=== PATIENT | male | born 1980 | race Caucasian/White ===

== ENCOUNTER 2018-01-02 09:45 | Inpatient (IN) ==
[2018-01-02] MEDS ORDERED: Pantoprazole Inj 40 MG Vial IV.PUSH ONE (09:56)
[2018-01-02] MEDS ORDERED: HYDROmorphone PF Inj 1 MG/ML Ampul IV.PUSH ONE (09:56)
[2018-01-02] MEDS ORDERED: Famotidine PF Inj 20 MG/2 ML Vial IV.PUSH ONE (09:56)
--- NOTE | 2018-01-02 10:34 | XR ---
EXAM DATE: 01/02/2018 10:31 AM EDT AGE/SEX: 37 years / Male INDICATIONS: Free air CLINICAL DATA: This is the patient's initial encounter. Patient reports that signs and symptoms have been present for 2 days and indicates a pain score of 9/10. MEDICAL/SURGICAL HISTORY: Crohn's disease. None. COMPARISON: [facility] [place], 01/02/2018. . FINDINGS: A single AP view of the chest demonstrates the lungs to be symmetrically aerated without evidence of mass, infiltrate or effusion. The cardiomediastinal contours are unremarkable. Osseous structures a re intact. No evidence of free air underneath the diaphragms. CONCLUSION: 1. No focal or acute intrathoracic disease. 2. No evidence of free air. Electronically signed by: Evin Dumont MD 01/02/2018 10:33 AM EDT
--- NOTE | 2018-01-02 10:36 | XR ---
EXAM DATE: 01/02/2018 10:33 AM EDT AGE/SEX: 37 years / Male INDICATIONS: Evaluate for perforation CLINICAL DATA: This is the patient's initial encounter. Patient reports that signs and symptoms have been present for 2 days and indicates a pain score of 9/10. MEDICAL/SURGICAL HISTORY: Crohn's disease. None. COMPARISON: No prior exams available for comparison. FINDINGS: Single upright view of the abdomen demonstrates no free air. There is a paucity of bowel gas. No orga nomegaly or concerning calcifications are seen. Visualized lung bases are clear. Bones demonstrate no abnormality. EKG lines overlie the patient. CONCLUSION: No acute abnormality is identified. There is no free air. Electronically signed by: Felix Duarte MD 01/02/2018 10:35 AM EDT
[2018-01-02] MEDS: Sod Chloride 0.9% Inj 1,000 ML IV.CONT SCH ×4 (10:48→22:22)
--- NOTE | 2018-01-02 10:51 | ED ---
HPI General Chief complaint: GI Bleed Stated complaint: Nausea / vomitting Time Seen by Provider: 01/02/18 09:56 History of Present Illness HPI Narrative: This is a 37-year-old male with a history of Crohn's disease, presents here today with complaints of severe nausea vomiting with coffee- ground emesis. Patient states that it started over the last 24-48 hours. He reports severe crampy abdominal pain. He states it is worse in his epigastrium. Patient states he has a history of esophageal varices. He states he has had them banded previous. Patient denies any fevers, chills. There is no melena. No other complaints at the time of my examination. Related Data Home Medications Medication Instructions Recorded Confirmed No Known Home Medications 01/02/18 01/02/18 Allergies Allergy/AdvReac Type Severity Reaction Status Date / Time No Known Allergies Allergy Unverified 01/02/18 09:54 Review of Systems ROS: all other systems reviewed are negative Constitutional Denies chills and Denies fever(s) Eyes Reports system reviewed and no additional complaints, except as docu ENT Reports system reviewed and no additional complaints, except as docu Cardiovascular Denies chest pain and Denies dyspnea Respiratory Denies chest congestion, Denies cough and Denies dyspnea Gastrointestinal Denies melena, Reports nausea, Reports vomiting and Reports other (Coffee- ground emesis.) Genitourinary Reports system reviewed and no additional complaints, except as docu Musculoskeletal Denies back pain, Denies numbness and Denies tingling Integumentary/Breasts Denies lesions and Denies rash Neurologic Denies headache(s), Denies numbness, Denies paresthesias and Reports weakness ( Generalized) Hematologic/Lymphatic Denies easy bleeding and Denies easy bruising PMFSH Medical History Medical History Crohns disease (Acute) Surgical History Surgical History No history of previous surgery (Acute) Family History Family History Other Osteoarthritis Social History Social History Substance History: Active Abuse Second Hand Smoke Exposure: Yes Smoking Status: Light tobacco smoker Tobacco Type: Cigarettes How Often Do You Have a Drink Containing Alcohol: Never Recent Travel in [facility] within the Last 8 Weeks: No Recent Out of Country Travel within the Last 8 Weeks: No Immunization History Tetanus Immunization: >5 Years Hx Influenza Vaccine This Season: No Exam Narrative Exam Narrative: GENERAL: Well-nourished, well-developed patient in obvious discomfort complain of abdominal pain.. SKIN: Focused skin assessment warm/dry. HEAD: Normocephalic/atraumatic. EYES: No scleral icterus. No injection or drainage. NECK: Supple, trachea midline. No JVD or lymphadenopathy. CARDIOVASCULAR: Regular rate and rhythm without murmurs, gallops, or rubs. RESPIRATORY: Breath sounds equal bilaterally. No accessory muscle use. GASTROINTESTINAL: Abdomen soft, nondistended. Patient had diffuse pain in his upper and lower quadrants. No rebound or guarding. MUSCULOSKELETAL: No cyanosis, or edema. BACK: Nontender without obvious deformity. No CVA tenderness. NEUROLOGICAL: Awake and alert. Cranial nerves II through XII intact. Motor grossly within normal limits. Five out of 5 muscle strength in all muscle groups. Normal speech. Course Initial Documented Vital Signs Temperature 97.9 F 01/02/18 09:51 Pulse Rate 84 01/02/18 09:51 Respiratory Rate 24 01/02/18 09:51 Blood Pressure 133/87 01/02/18 09:51 Pulse Oximetry 98 01/02/18 09:51 Last Documented Vital Signs Temperature 98.4 F 01/04/18 16:00 Pulse Rate 90 01/04/18 16:00 Respiratory Rate 16 01/04/18 16:00 Blood Pressure 167/79 H 01/04/18 16:00 Pulse Oximetry 100 01/04/18 16:00 Medical Decision Making MDM Narrative Medical decision making narrative: 37-year-old male with a history of Crohn's disease, presents today with complaints of abdominal pain. Patient has intractable pain. He is received 2 doses of IV and antiemetics. The patient also has blood tinged vomit. He will be admitted for an upper endoscopy secondary to his history of Crohn's and history of varices. An NG tube was held at this time given his history of varices. Case was discussed with the admitting team her agreeable for admission. Medical Screen Exam Complete: Yes Emergency Medical Condition: Yes Differential Diagnosis Differential Diagnosis: Crohn's exacerbation versus Shayna-Lopez tear versus Lab Data Result diagrams: 01/04/18 08:01 01/04/18 08:01 Lab Results 01/02/18 01/02/18 01/02/18 Range/Units 10:15 10:15 10:15 WBC 14.4 H (4.0-11.0) th/mm3 RBC 4.32 L (4.50-5.90) mil/mm3 Hgb 16.0 (13.0-17.0) gm/dL Hct 46.8 (39.0-51.0) % MCV 108.4 H (80.0-100.0) fL MCH 37.1 H (27.0-34.0) pg MCHC 34.2 (32.0-36.0) % RDW 19.9 H (11.6-17.2) % Plt Count 227 (150-450) th/mm3 MPV 10.2 (7.0-11.0) fL Neut % (Auto) 86.7 H (16.0-70.0) % Lymph % (Auto) 7.0 L (9.0-44.0) % Robertson % (Auto) 6.0 (0.0-8.0) % Eos % (Auto) 0.1 (0.0-4.0) % Baso % (Auto) 0.2 (0.0-2.0) % Neut # (Auto) 12.5 H (1.8-7.7) th/mm3 Lymph # (Auto) 1.0 (1.0-4.8) th/mm3 Robertson # (Auto) 0.9 (0.0-0.9) th/mm3 Eos # (Auto) 0.0 (0.0-0.4) th/mm3 Baso # (Auto) 0.0 (0.0-0.2) th/mm3 WBC Differential . Differential Comment Auto diff final PT 10.8 (9.8-11.6) sec INR 1.1 Ratio APTT 22.3 L (24.3-30.1) sec Sodium 142 (136-145) meq/L Potassium 3.2 L (3.5-5.1) meq/L Chloride 100 (98-107) meq/L Carbon Dioxide 23.3 (21.0-32.0) meq/L Anion Gap 19 H (5-15) meq/L BUN 8 (7-18) mg/dL Creatinine 1.00 (0.60-1.30) mg/dL Estimated GFR 84 L (>89) mL/min Random Glucose 125 H (74-106) mg/dL Calcium 7.8 L (8.5-10.1) mg/dL Total Bilirubin 1.2 H (0.2-1.0) mg/dL AST 75 H (15-37) U/L ALT 73 (12-78) U/L Alkaline Phosphatase 93 (45-117) U/L Troponin I Less than 0.02 L (0.02-0.05) ng/mL Total Protein 6.6 (6.4-8.2) g/dL Albumin 3.3 L (3.4-5.0) g/dL Urine Opiates Screen (Neg) Ur Barbiturates Screen (Neg) Ur Amphetamines Screen (Neg) U Benzodiazepines Scrn (Neg) Urine Cocaine Screen (Neg) U Cannabinoids Screen (Neg) Blood Type Antibody Screen MTS Gel Crossmatch Bld Prod Order Comment 01/02/18 01/02/18 01/03/18 Range/Units 10:15 20:29 06:42 WBC 12.6 H (4.0-11.0) th/mm3 RBC 3.78 L (4.50-5.90) mil/mm3 Hgb 14.6 14.3 (13.0-17.0) gm/dL Hct 41.6 41.7 (39.0-51.0) % MCV 110.2 H (80.0-100.0) fL MCH 37.9 H (27.0-34.0) pg MCHC 34.4 (32.0-36.0) % RDW 19.4 H (11.6-17.2) % Plt Count 156 D (150-450) th/mm3 MPV 10.2 (7.0-11.0) fL Neut % (Auto) 89.7 H (16.0-70.0) % Lymph % (Auto) 5.5 L (9.0-44.0) % Robertson % (Auto) 4.7 (0.0-8.0) % Eos % (Auto) 0.0 (0.0-4.0) % Baso % (Auto) 0.1 (0.0-2.0) % Neut # (Auto) 11.3 H (1.8-7.7) th/mm3 Lymph # (Auto) 0.7 L (1.0-4.8) th/mm3 Robertson # (Auto) 0.6 (0.0-0.9) th/mm3 Eos # (Auto) 0.0 (0.0-0.4) th/mm3 Baso # (Auto) 0.0 (0.0-0.2) th/mm3 WBC Differential . Differential Comment Auto diff final PT (9.8-11.6) sec INR Ratio APTT (24.3-30.1) sec Sodium (136-145) meq/L Potassium (3.5-5.1) meq/L Chloride (98-107) meq/L Carbon Dioxide (21.0-32.0) meq/L Anion Gap (5-15) meq/L BUN (7-18) mg/dL Creatinine (0.60-1.30) mg/dL Estimated GFR (>89) mL/min Random Glucose (74-106) mg/dL Calcium (8.5-10.1) mg/dL Total Bilirubin (0.2-1.0) mg/dL AST (15-37) U/L ALT (12-78) U/L Alkaline Phosphatase (45-117) U/L Troponin I (0.02-0.05) ng/mL Total Protein (6.4-8.2) g/dL Albumin (3.4-5.0) g/dL Urine Opiates Screen (Neg) Ur Barbiturates Screen (Neg) Ur Amphetamines Screen (Neg) U Benzodiazepines Scrn (Neg) Urine Cocaine Screen (Neg) U Cannabinoids Screen (Neg) Blood Type A Positive Antibody Screen Negative MTS Gel Crossmatch See Detail Bld Prod Order Comment Not Reportable 01/03/18 01/04/18 01/04/18 Range/Units 06:46 08:01 08:01 WBC 10.6 (4.0-11.0) th/mm3 RBC 3.74 L (4.50-5.90) mil/mm3 Hgb 14.1 (13.0-17.0) gm/dL Hct 41.1 (39.0-51.0) % MCV 109.9 H (80.0-100.0) fL MCH 37.7 H (27.0-34.0) pg MCHC 34.3 (32.0-36.0) % RDW 18.9 H (11.6-17.2) % Plt Count 135 L (150-450) th/mm3 MPV 10.7 (7.0-11.0) fL Neut % (Auto) (16.0-70.0) % Lymph % (Auto) (9.0-44.0) % Robertson % (Auto) (0.0-8.0) % Eos % (Auto) (0.0-4.0) % Baso % (Auto) (0.0-2.0) % Neut # (Auto) (1.8-7.7) th/mm3 Lymph # (Auto) (1.0-4.8) th/mm3 Robertson # (Auto) (0.0-0.9) th/mm3 Eos # (Auto) (0.0-0.4) th/mm3 Baso # (Auto) (0.0-0.2) th/mm3 WBC Differential Differential Comment PT (9.8-11.6) sec INR Ratio APTT (24.3-30.1) sec Sodium 142 141 (136-145) meq/L Potassium 3.4 L 3.7 (3.5-5.1) meq/L Chloride 105 108 H (98-107) meq/L Carbon Dioxide 25.2 25.7 (21.0-32.0) meq/L Anion Gap 12 7 (5-15) meq/L BUN 6 L 6 L (7-18) mg/dL Creatinine 0.50 L 0.55 L (0.60-1.30) mg/dL Estimated GFR Greater than 89 Greater than 89 (>89) mL/min Random Glucose 104 147 H (74-106) mg/dL Calcium 7.8 L 7.6 L (8.5-10.1) mg/dL Total Bilirubin 0.9 0.6 (0.2-1.0) mg/dL AST 42 H 66 H (15-37) U/L ALT 48 58 (12-78) U/L Alkaline Phosphatase 76 68 (45-117) U/L Troponin I (0.02-0.05) ng/mL Total Protein 5.5 L D 5.6 L (6.4-8.2) g/dL Albumin 2.7 L D 2.7 L (3.4-5.0) g/dL Urine Opiates Screen (Neg) Ur Barbiturates Screen (Neg) Ur Amphetamines Screen (Neg) U Benzodiazepines Scrn (Neg) Urine Cocaine Screen (Neg) U Cannabinoids Screen (Neg) Blood Type Antibody Screen MTS Gel Crossmatch Bld Prod Order Comment 01/04/18 Range/Units 17:05 WBC (4.0-11.0) th/mm3 RBC (4.50-5.90) mil/mm3 Hgb (13.0-17.0) gm/dL Hct (39.0-51.0) % MCV (80.0-100.0) fL MCH (27.0-34.0) pg MCHC (32.0-36.0) % RDW (11.6-17.2) % Plt Count (150-450) th/mm3 MPV (7.0-11.0) fL Neut % (Auto) (16.0-70.0) % Lymph % (Auto) (9.0-44.0) % Robertson % (Auto) (0.0-8.0) % Eos % (Auto) (0.0-4.0) % Baso % (Auto) (0.0-2.0) % Neut # (Auto) (1.8-7.7) th/mm3 Lymph # (Auto) (1.0-4.8) th/mm3 Robertson # (Auto) (0.0-0.9) th/mm3 Eos # (Auto) (0.0-0.4) th/mm3 Baso # (Auto) (0.0-0.2) th/mm3 WBC Differential Differential Comment PT (9.8-11.6) sec INR Ratio APTT (24.3-30.1) sec Sodium (136-145) meq/L Potassium (3.5-5.1) meq/L Chloride (98-107) meq/L Carbon Dioxide (21.0-32.0) meq/L Anion Gap (5-15) meq/L BUN (7-18) mg/dL Creatinine (0.60-1.30) mg/dL Estimated GFR (>89) mL/min Random Glucose (74-106) mg/dL Calcium (8.5-10.1) mg/dL Total Bilirubin (0.2-1.0) mg/dL AST (15-37) U/L ALT (12-78) U/L Alkaline Phosphatase (45-117) U/L Troponin I (0.02-0.05) ng/mL Total Protein (6.4-8.2) g/dL Albumin (3.4-5.0) g/dL Urine Opiates Screen Neg (Neg) Ur Barbiturates Screen Neg (Neg) Ur Amphetamines Screen Neg (Neg) U Benzodiazepines Scrn Neg (Neg) Urine Cocaine Screen Neg (Neg) U Cannabinoids Screen Pos H (Neg) Blood Type Antibody Screen MTS Gel Crossmatch Bld Prod Order Comment Imaging Data Radiologist's impression: Abdomen X-Ray 01/02/18 09:56 CONCLUSION: No acute abnormality is identified. There is no free air. Chest X-Ray 01/02/18 09:56 CONCLUSION: 1. No focal or acute intrathoracic disease. 2. No evidence of free air. Abdomen/Pelvis CT 01/03/18 00:00 CONCLUSION: Fatty liver. Gallbladder Ultrasound 01/04/18 00:00 CONCLUSION: 1. No acute abnormality is identified to explain the clinical symptoms. 2. Hepatic steatosis. Discharge Plan Discharge Disposition Patient Disposition: Left Against Medical Advice Discharge Order Discharge Orders: AMA Discharge (Routine); Ordered 01/04/18 Ordered By: Emigdio Blair Discharge Details Diagnosis: Abdominal pain, Crohns disease, Hyperemesis Physicians Team ED Provider: Luis Rand Primary Care Provider: Primary Care Joleen Galeana Attending Provider: Emigdio Blair Other Providers: Bryon Calle Discharge Interventions Interventions: ED Discharge Assessment Last Done: 01/02/18 17:32 Vital Signs Last Done: 01/02/18 12:16 Status ED Status: Left Department Discharge Information Discharge Date/Time: 01/02/18 17:42 Discharge Location: [facility]
[2018-01-02 11:01] LABS: Baso % (Auto) 0.2 % (0.0-2.0); Eos % (Auto) 0.1 % (0.0-4.0); Hematocrit 46.8 % (39.0-51.0); Mean Corpuscular HGB Conc 34.2 % (32.0-36.0); Mean Corpuscular Hemoglobin 37.1 pg (27.0-34.0); Mean Corpuscular Volume 108.4 fL (80.0-100.0); Mean Platelet Volume 10.2 fL (7.0-11.0); Mono # (Auto) 0.9 th/mm3 (0.0-0.9); Neut # (Auto) 12.5 th/mm3 (1.8-7.7); Neut % (Auto) 86.7 % (16.0-70.0); Platelet Count 227 th/mm3 (150-450); Red Blood Count 4.32 mil/mm3 (4.50-5.90); Red Cell Distribution Width 19.9 % (11.6-17.2); White Blood Count 14.4 th/mm3 (4.0-11.0)
[2018-01-02 11:21] LABS: Activated Partial Thrombo Time 22.3 sec (24.3-30.1); INR 1.1 Ratio; Prothrombin Time 10.8 sec (9.8-11.6)
[2018-01-02 11:23] LABS: Alanine Aminotransferase 73 U/L (12-78); Albumin 3.3 g/dL (3.4-5.0); Anion Gap 19 meq/L (5-15); Aspartate Aminotransferase 75 U/L (15-37); Blood Urea Nitrogen 8 mg/dL (7-18); Calcium 7.8 mg/dL (8.5-10.1); Carbon Dioxide 23.3 meq/L (21.0-32.0); Chloride 100 meq/L (98-107); Glomerular Filtration Rate 84 mL/min (>89); Glucose,Random 125 mg/dL (74-106); Potassium 3.2 meq/L (3.5-5.1); Sodium 142 meq/L (136-145)
[2018-01-02 11:35] LABS: Alkaline Phosphatase 93 U/L (45-117); Total Protein 6.6 g/dL (6.4-8.2)
[2018-01-02] MEDS ORDERED: Morphine Inj 4 MG, Morphine Inj 2 MG IV.PUSH ONE ×2 (11:54)
--- NOTE | 2018-01-02 12:35 | P.HPIM ---
History of Present Illness Primary Care Physician: No Primary Care Physician History of Present Illness: Mr. Rodriguez is a 37-year-old male. He came into the hospital secondary to hematemesis with abdominal pain. This patient has a past history of Crohn's disease and esophageal varices in the past. She also has a history of episodic vomiting episodes in the past. He says this can last 1-2 days. His vomiting started yesterday. She says vomiting started first and subsequently bleeding started. He will typically have esophageal bleeding which collects in the stomach and he reports vomiting bright red blood and sometimes dark black blood clots. Hemoglobin is stable at the time and is analyzed in the ER. However, patient at risk for further bleeding and anemia. No other complaints at this time. To him this feels like 1 of his Crohn's exacerbations and does not feel like food poisoning or virus. No sick contacts. - Diagnosis (1) Hematemesis (2) Crohns disease (3) Abdominal pain (4) Hyperemesis Review of Systems Constitutional: No fevers, no chills no night sweats, no fatigue, no weakness Eyes: No eye pain, no blurry vision, no loss of vision ENT: No sore throat, no ear pain, no rhinorrhea Cardiovascular: No chest pain, no tachycardia, no palpitations, no shortness of breath, no syncope Respiratory: No wheezing, no cough, no shortness of breath Gastrointestinal: Positive abdominal pain, vomiting, hematemesis, no black tarry stools, no bright red blood per rectum, no diarrhea Musculoskeletal: No joint pain, no muscle cramps, no stiffness Integumentary: No rash, no ulcers, no drainage Neurologic: No sensory loss, no loss of motor function, no dizziness Psychiatric: No behavioral changes, no hallucinations, no suicidal ideations [facility] - History History Provided By: Patient - Medical History Medical History: Medical History (Last Updated 01/02/18 @ 09:53 by Linda Osborn) Crohns disease - Surgical History Surgical History: Surgical History (Last Updated 01/02/18 @ 09:53 by Linda Osborn) No history of previous surgery - Family History Family History: Family History (Last Updated 01/02/18 @ 12:32 by Anastacio Ramachandran MD) Other Osteoarthritis - Tobacco History Second Hand Smoke Exposure: No Tobacco Use In Past 30 Days: No Smoking Status: Current every day smoker Tobacco Type: Cigarettes - Alcohol History How Often Do You Have a Drink Containing Alcohol: Never - Substance Use History Substance History: No History of Abuse - Travel History Recent Travel in the [place] Within the Last 8 Weeks: No Recent Travel Out of the Country Within the Last 8 Weeks: No - Immunization History Tetanus Immunization: >5 Years Hx Influenza Vaccine This Season: No Medications and Allergies Active Medications: Active Medications Hydromorphone HCl (Dilaudid Pf Inj) 1 mg IV.PUSH Q4H PRN PRN Reason: Pain 7 to 10 Hydromorphone HCl (Dilaudid Pf Inj) 0.5 mg IV.PUSH Q4H PRN PRN Reason: Pain 3 to 6 Sodium Chloride (Ns Inj) 1,000 mls @ 125 mls/hr IV.CONT .Q8H HALI Last Admin: 01/02/18 10:48 Dose: 125 mls/hr Sodium Chloride (Ns Inj) 1,000 mls @ 100 mls/hr IV.CONT .Q10H HALI Ondansetron HCl (Zofran Inj) 4 mg IV.PUSH Q6H PRN PRN Reason: NAUSEA OR VOMITING Sodium Chloride (Ns Flush) 2 ml IV.FLUSH PRN PRN PRN Reason: FLUSH AFTER USING IV ACCESS Last Admin: 01/02/18 10:48 Dose: 2 ml Allergies Allergy/AdvReac Type Severity Reaction Status Date / Time No Known Allergies Allergy Unverified 01/02/18 09:54 Home Medications Medication Instructions Recorded Confirmed Type No Known Home Medications 01/02/18 01/02/18 History Exam Vital signs: Vital Signs 01/02/18 09:51 01/02/18 10:44 01/02/18 12:16 Temperature 97.9 F Pulse Rate 84 94 H 107 H Respiratory Rate 24 22 20 Blood Pressure 133/87 126/83 139/82 Pulse Oximetry 98 96 97 Intake & Output 01/01/18 01/02/18 01/02/18 18:59 06:59 18:59 Weight 58.967 kg Narrative: GENERAL: NAD, A&Ox3 HEAD: Normocephalic. NECK: Supple, trachea midline. No lymphadenopathy. EYES: No scleral icterus. No injection or drainage. CARDIOVASCULAR: Regular rate and rhythm without murmurs, gallops, or rubs. RESPIRATORY: Breath sounds equal bilaterally. No accessory muscle use. GASTROINTESTINAL: Abdomen soft, tender abdomen, mildly distended. Hypoactive bowel sounds. Mild guarding. MUSCULOSKELETAL: No cyanosis, or edema. SKIN: Warm and dry. NEURO: No focal neurological deficits. Results - Labs CBC & Chem 7: 01/02/18 10:15 01/02/18 10:15 Labs: Short CBC 01/02/18 Range/Units 10:15 WBC 14.4 H (4.0-11.0) th/mm3 Hgb 16.0 (13.0-17.0) gm/dL Hct 46.8 (39.0-51.0) % Plt Count 227 (150-450) th/mm3 BMP 01/02/18 10:15 Sodium 142 Potassium 3.2 L Chloride 100 Carbon Dioxide 23.3 BUN 8 Creatinine 1.00 Calcium 7.8 L Cardiac Enzymes 01/02/18 Range/Units 10:15 Troponin I Less than 0.02 L (0.02-0.05) ng/mL Liver Function 01/02/18 Range/Units 10:15 Total Bilirubin 1.2 H (0.2-1.0) mg/dL AST 75 H (15-37) U/L ALT 73 (12-78) U/L Alkaline Phosphatase 93 (45-117) U/L Albumin 3.3 L (3.4-5.0) g/dL - Imaging Impressions Abdomen X-Ray 01/02/18 09:56 CONCLUSION: No acute abnormality is identified. There is no free air. Chest X-Ray 01/02/18 09:56 CONCLUSION: 1. No focal or acute intrathoracic disease. 2. No evidence of free air. Caprini VTE Risk Assessment Caprini VTE Risk Assessment: No/Low Risk (score <= 1) Caprini Risk Assessment Model: Point Value = 1 Point Value = 2 Point Value = 3 Point Value = 5 Age 41-60 Minor surgery BMI > 25 kg/m2 Swollen legs Varicose veins or History of unexplained or recurrent spontaneous Oral contraceptives or hormone replacement Sepsis (< 1 month) Serious lung disease, including pneumonia (< 1 month) Abnormal pulmonary function Acute myocardial infarction Congestive heart failure (< 1 month) History of inflammatory bowel disease Medical patient at bed rest Age 61-74 Arthroscopic surgery Major open surgery (> 45 min) Laparoscopic surgery (> 45 min) Malignancy Confined to bed (> 72 hours) Immobilizing plaster cast Central venous access Age >= 75 History of VTE Family history of VTE Factor V Leiden Prothrombin [id number] Lupus anticoagulant Anticardiolipin antibodies Elevated serum homocysteine Heparin-induced thrombocytopenia Other congenital or acquired thrombophilia Stroke (< 1 month) Elective arthroplasty Hip, pelvis, or leg fracture Acute spinal cord injury (< 1 month) Prophylaxis Regimen: Total Risk Factor Score Risk Level Prophylaxis Regimen 0-1 Low Early ambulation 2 Moderate Order ONE of the following: *Sequential Compression Device (SCD) *Heparin 5000 units SQ BID 3-4 Higher Order ONE of the following medications: *Heparin 5000 units SQ TID *Enoxaparin/Lovenox 40 mg SQ daily (WT < 150 kg, CrCl > 30 mL/min) *Enoxaparin/Lovenox 30 mg SQ daily (WT < 150 kg, CrCl > 10-29 mL/min) *Enoxaparin/Lovenox 30 mg SQ BID (WT < 150 kg, CrCl > 30 mL/min) AND/OR *Sequential Compression Device (SCD) 5 or more Highest Order ONE of the following medications: *Heparin 5000 units SQ TID (Preferred with Epidurals) *Enoxaparin/Lovenox 40 mg SQ daily (WT < 150 kg, CrCl > 30 mL/min) *Enoxaparin/Lovenox 30 mg SQ daily (WT < 150 kg, CrCl > 10-29 mL/min) *Enoxaparin/Lovenox 30 mg SQ BID (WT < 150 kg, CrCl > 30 mL/min) AND *Sequential Compression Device (SCD) Assessment and Plan - Assessment (1) Hematemesis Code(s): K92.0 - Hematemesis Status: Acute (2) Crohns disease Code(s): K50.90 - Crohn's disease, unspecified, without complications Status: Acute (3) Abdominal pain Code(s): R10.9 - Unspecified abdominal pain Status: Acute (4) Hyperemesis Code(s): R11.10 - Vomiting, unspecified Status: Acute - Plan 37-year-old male admitted secondary to hematemesis with abdominal pain. Hematemesis Hyperemesis Acute abdominal pain History of Crohn's disease History of esophageal varices Patient is at risk for dehydration Patient is at risk for acute blood loss anemia Continue IV pain treatments for pain control Continue IV antiemetics for nausea and vomiting control GI consulted Monitor H&H closely General anxiety disorder Ativan as needed IV DVT prophylaxis SCDs
[2018-01-02] MEDS ORDERED: HYDROmorphone PF Inj 2 MG/ML Vial IV.PUSH PRN (13:00)
[2018-01-02] MEDS ORDERED: MethylPREDNISolone Sod Succinate Inj 40 MG/ML Vial IV.PUSH ONE (13:03)
[2018-01-02] MEDS ORDERED: PEG 3350/E-Lyte Soln 4000 ML Bottle PO ONE (19:21)
--- NOTE | 2018-01-02 20:22 | MB ---
cc: Uzair Allred MD DATE: 01/02/2018 REASON FOR REFERRAL: Nausea, vomiting: Abdominal pain, diarrhea. Thank you for the consultation. HISTORY OF PRESENT ILLNESS: A 37-year-old male who is known to have Crohn disease. He was diagnosed a few years ago. Apparently, the patient was not taking any medication because of lack of insurance. Last time he saw a aboriginal education worker coordinator was last year when he was admitted to [facility] and supposedly he had an upper endoscopy and colonoscopy. He was given prednisone. He was supposed to follow up with Dr. Cantu, his aboriginal education worker coordinator, but he did not because of the insurance issue. The patient stated that he has been vomiting significantly with abdominal pain in the last few days, worse in the last 2 days and then he started having some trace of blood. The patient stated that he has diarrhea every day for the last few years and he has significant abdominal pain, some weight loss and he denies rectal bleeding, but he feels that this is one of his flare-ups as far as Crohn disease. REVIEW OF SYSTEMS: All 12 points negative except for HPI. PAST MEDICAL HISTORY: Crohn disease and questionable history of esophageal varices. PAST SURGICAL HISTORY: He had an upper endoscopy and a colonoscopy, according to him. He has had multiple colonoscopies. FAMILY HISTORY: Osteoarthritis. SOCIAL HISTORY: Negative for tobacco and alcohol. No drugs. MEDICATIONS: Reviewed in the chart. ALLERGIES: NO KNOWN DRUG ALLERGIES. PHYSICAL EXAMINATION: GENERAL: Alert, oriented, in no acute distress. HEENT: Pupils are round and reactive to light. NECK: Supple. CHEST: Clear to auscultation and percussion. CARDIAC: Regular rate and rhythm. ABDOMEN: Soft. Mild diffuse tenderness, mild distention. Positive bowel sounds but reduced. No hepatosplenomegaly. EXTREMITIES: No edema, clubbing or cyanosis. No jaundice. SKIN: Clear. NEUROLOGIC: No focal abnormality. PSYCHOLOGIC: Appropriate. LABORATORY DATA: White count 14.4, hemoglobin 16, platelets 227. INR 1.1. AST 75, ALT 73, total bilirubin 1.1, albumin 3.3, creatinine 1.0. No acute abnormalities were identified on KUB. ASSESSMENT AND PLAN: A 37-year-old male with nausea, vomiting, hematemesis, abdominal pain, severe diarrhea. Most likely this is Crohn disease. Apparently, the patient has multiple workups with colonoscopies, capsule endoscopies. He is noncompliant with medication because of insurance issue. Last procedure was done about a year and a half ago. I recommend doing upper endoscopy and colonoscopy. We will plan on doing that tomorrow and further plan depends on the findings. Meanwhile, we will continue supportive care with antiemetics and make sure that the patient is not actively bleeding. Further plan for Crohn diseased depends on the findings. Dr. Calle will perform the procedure tomorrow. Uzair Allred MD AH/ct , 07:20 PM , 07:35 PM
[2018-01-02 21:06] LABS: Hematocrit 41.6 % (39.0-51.0); Hemoglobin 14.6 gm/dL (13.0-17.0)
[2018-01-02] MEDS: MethylPREDNISolone Sod Succinate Inj 40 MG/ML Vial IV.PUSH SCH (21:42)
[2018-01-03] MEDS: Sod Chloride 0.9% Inj 1,000 ML IV.CONT SCH ×6 (02:21→21:21)
[2018-01-03] MEDS: MethylPREDNISolone Sod Succinate Inj 40 MG/ML Vial IV.PUSH SCH ×3 (05:35→22:39)
[2018-01-03] MEDS ORDERED: Esmolol Bolus Inj 100 MG/10 ML Vial IV.PUSH ONE (08:40)
[2018-01-03] MEDS ORDERED: Lidocaine PF 1% Inj 5 ML Syringe INFILTRATN ONE (08:40)
[2018-01-03 09:00] LABS: Baso % (Auto) 0.1 % (0.0-2.0); Hematocrit 41.7 % (39.0-51.0); Hemoglobin 14.3 gm/dL (13.0-17.0); Lymph # (Auto) 0.7 th/mm3 (1.0-4.8); Lymph % (Auto) 5.5 % (9.0-44.0); Mean Corpuscular HGB Conc 34.4 % (32.0-36.0); Mean Corpuscular Hemoglobin 37.9 pg (27.0-34.0); Mean Corpuscular Volume 110.2 fL (80.0-100.0); Mean Platelet Volume 10.2 fL (7.0-11.0); Mono # (Auto) 0.6 th/mm3 (0.0-0.9); Mono % (Auto) 4.7 % (0.0-8.0); Neut # (Auto) 11.3 th/mm3 (1.8-7.7); Neut % (Auto) 89.7 % (16.0-70.0); Platelet Count 156 th/mm3 (150-450); Red Blood Count 3.78 mil/mm3 (4.50-5.90); Red Cell Distribution Width 19.4 % (11.6-17.2); White Blood Count 12.6 th/mm3 (4.0-11.0)
[2018-01-03] MEDS ORDERED: Chlorhexidine Gluconate 2% 1 Pack (2 Cloths) TOPICAL SCH (09:00)
[2018-01-03] MEDS ORDERED: Metoprolol Tartrate 25 MG Tablet PO SCH (09:00)
[2018-01-03] MEDS ORDERED: Sodium Chlor 0.9% Inj 500 ML IV.SIG SCH (09:00)
[2018-01-03 09:05] LABS: Albumin 2.7 g/dL (3.4-5.0); Anion Gap 12 meq/L (5-15); Blood Urea Nitrogen 6 mg/dL (7-18); Calcium 7.8 mg/dL (8.5-10.1); Carbon Dioxide 25.2 meq/L (21.0-32.0); Chloride 105 meq/L (98-107); Glucose,Random 104 mg/dL (74-106); Potassium 3.4 meq/L (3.5-5.1); Sodium 142 meq/L (136-145)
[2018-01-03 09:10] LABS: Alanine Aminotransferase 48 U/L (12-78); Glomerular Filtration Rate Greater Than 89 mL/min (>89)
[2018-01-03 09:12] LABS: Alkaline Phosphatase 76 U/L (45-117); Aspartate Aminotransferase 42 U/L (15-37); Total Protein 5.5 g/dL (6.4-8.2)
--- NOTE | 2018-01-03 09:22 | P.PCN ---
Date of procedure: 01/03/18 Pre-op diagnosis: Abdominal pain, nausea vomiting, diarrhea, history of Crohn's disease Procedure: PROCEDURE PERFORMED EGD with biopsy followed by colonoscopy with biopsy PROCEDURE: The procedure, risks and benefits were discussed with Patient/POA and informed consent was obtained. Anesthesia sedated Patient with Diprivan. Patient was placed in the left lateral decubitus position. EGD: The Pentax videoscope was introduced through the oropharynx and advanced to the second portion of the duodenum under direct visualization. Retroflexion was performed in the stomach. FINDINGS: The esophagus there was extensive grade D reflux esophagitis involving the whole esophagus with friability and erythema biopsies were taken for further evaluation The stomach there was a small hiatal hernia there is also patchy erythema specifically in the antrum no ulcerations no erosions no blood or bleeding antral biopsies were taken for further evaluation The duodenum there was patchy erythema in the duodenal bulb of unclear significance this was biopsied the rest of the duodenum was unremarkable Colonoscopy: The Pentax videoscope was introduced through the rectum and advanced to cecum where the ileocecal valve and appendiceal orifice were identified and thereafter the terminal ileum. Retroflexion was performed in the rectum. Colonic prep was fair FINDINGS: Colonic withdrawal time greater than 6 minutes. As the scope was slowly withdrawn colonic mucosa was carefully inspected the scope was advanced into the terminal ileum appeared to be unremarkable with normal limits the colonic mucosa appeared to be unremarkable and within normal limits all the way through random biopsies were taken from the ascending and descending colon for evaluation of diarrhea retroflexion was unremarkable so his rectal examination ESTIMATED BLOOD LOSS: None SPECIMENS REMOVED: Esophageal, gastric, duodenal, colon biopsies COMPLICATIONS: None IMPRESSION: Grade D reflux esophagitis Small hiatal hernia Mild gastritis Mild duodenitis Normal colon Normal terminal ileum PLAN: Await biopsies Obtain CT of the abdomen Continue with current supportive care Monitor labs Advance diet Pantoprazole 40 mg twice daily EGD in 2 months Anesthesia: MAC Surgeon: Bryon Calle Condition: stable Disposition: floor
[2018-01-03] MEDS ORDERED: Diatrizoate Meglum/Diatrizoate Sod Liq 9 ML UDC PO ONE (10:00)
--- NOTE | 2018-01-03 12:52 | P.PNIM ---
Subjective Interval history: f/u; abdominal pain in no acute distress. had EGD/colonoscopy earlier today. has mild to moderate abdominal pain along with nausea. Physical Exam Vital signs: Vital Signs 01/02/18 14:37 01/02/18 14:38 01/02/18 16:36 Temperature Pulse Rate 78 80 Respiratory Rate 18 18 16 Blood Pressure 126/68 125/79 Pulse Oximetry 98 99 01/02/18 17:30 01/02/18 20:00 01/02/18 23:48 Temperature 98.4 F 97.7 F Pulse Rate 77 90 94 H Respiratory Rate 18 18 18 Blood Pressure 133/78 137/81 118/78 Pulse Oximetry 99 96 99 01/03/18 04:00 01/03/18 08:00 01/03/18 09:00 Temperature 98.2 F 98.1 F Pulse Rate 86 80 69 Respiratory Rate 18 18 Blood Pressure 116/70 123/73 Pulse Oximetry 99 100 01/03/18 09:25 01/03/18 09:30 01/03/18 09:45 Temperature 98 F 97.8 F Pulse Rate 93 H 97 H 98 H Respiratory Rate 10 L 15 16 Blood Pressure 120/62 121/81 124/72 Pulse Oximetry 100 100 100 01/03/18 09:55 Temperature Pulse Rate Respiratory Rate Blood Pressure Pulse Oximetry 100 Intake & Output 01/02/18 01/03/18 01/03/18 18:59 06:59 18:59 Intake Total 1000 / 1000 2000 / 2000 1000 / 1000 Balance 1000 / 1000 2000 / 2000 1000 / 1000 Weight 58.967 kg 68 kg Intake: IV 1000 / 1000 2000 / 2000 1000 / 1000 NS Inj 1,000 ML @ 100 mls/hr IV 1000 / 1000 2000 / 2000 1000 / 1000 .CONT .Q10H HALI Rx#:[id number] Oral 0 / 0 Other: # Voids 0 # Bowel Movements 0 - Constitutional no acute distress - Routine Respiratory Exam Present: CTA bilaterally - Routine Cardiovascular Exam Present: RRR - Routine Abdominal Exam Present: soft, tenderness (generalized abdominal tenderness.) - Routine Extremities Exam Comments: no pedal edema. - Routine Neurological Exam Present: alert, oriented X3 Results - Labs CBC & Chem 7: 01/03/18 06:42 01/03/18 06:46 Laboratory Results - last 24 hr 01/02/18 01/02/18 01/03/18 10:15 20:29 06:42 WBC 12.6 H RBC 3.78 L Hgb 14.6 14.3 Hct 41.6 41.7 MCV 110.2 H MCH 37.9 H MCHC 34.4 RDW 19.4 H Plt Count 156 D MPV 10.2 Neut % (Auto) 89.7 H Lymph % (Auto) 5.5 L [place] % (Auto) 4.7 Eos % (Auto) 0.0 Baso % (Auto) 0.1 Neut # (Auto) 11.3 H Lymph # (Auto) 0.7 L [place] # (Auto) 0.6 Eos # (Auto) 0.0 Baso # (Auto) 0.0 WBC Differential . Differential Comment Auto diff final Sodium Potassium Chloride Carbon Dioxide Anion Gap BUN Creatinine Estimated GFR Random Glucose Calcium Total Bilirubin AST ALT Alkaline Phosphatase Total Protein Albumin Blood Type A Positive Antibody Screen Negative MTS Gel Crossmatch See Detail Bld Prod Order Comment Not Reportable 01/03/18 06:46 WBC RBC Hgb Hct MCV MCH MCHC RDW Plt Count MPV Neut % (Auto) Lymph % (Auto) [place] % (Auto) Eos % (Auto) Baso % (Auto) Neut # (Auto) Lymph # (Auto) [place] # (Auto) Eos # (Auto) Baso # (Auto) WBC Differential Differential Comment Sodium 142 Potassium 3.4 L Chloride 105 Carbon Dioxide 25.2 Anion Gap 12 BUN 6 L Creatinine 0.50 L Estimated GFR Greater than 89 Random Glucose 104 Calcium 7.8 L Total Bilirubin 0.9 AST 42 H ALT 48 Alkaline Phosphatase 76 Total Protein 5.5 L D Albumin 2.7 L D Blood Type Antibody Screen MTS Gel Crossmatch Bld Prod Order Comment Assessment and Plan - Assessment (1) Hematemesis Code(s): K92.0 - Hematemesis Status: Acute (2) Crohns disease Code(s): K50.90 - Crohn's disease, unspecified, without complications Status: Acute (3) Abdominal pain Code(s): R10.9 - Unspecified abdominal pain Status: Acute (4) Hyperemesis Code(s): R11.10 - Vomiting, unspecified Status: Acute - Plan Hematemesis Hyperemesis Acute abdominal pain History of Crohn's disease History of esophageal varices s/p EGD and colonoscopy : Grade D reflux esophagitis/Small hiatal hernia/Mild gastritis/Mild duodenitis with Normal colon and Normal terminal ileum CT of the abdomen pending. Continue IV pain treatments for pain control Continue IV antiemetics for nausea and vomiting control GI following. Monitor H&H . General anxiety disorder Ativan as needed IV DVT prophylaxis SCDs Discharge Planning: when medically stable/ pending GI w/u.
--- NOTE | 2018-01-03 17:39 | CT ---
EXAM DATE: 01/03/2018 5:33 PM EDT AGE/SEX: 37 years / Male INDICATIONS: Abdominal pain. Nausea. Vomiting. CLINICAL DATA: This is the patient's initial encounter. Patient reports that signs and symptoms have been present for 3 days and indicates a pain score of 6/10. MEDICAL/SURGICAL HISTORY: Crohn's disease. None. ORAL CONTRAST: Partial prescribed oral contrast ingested. RADIATION DOSE: 5.63 CTDI (mGy) COMPARISON: [facility] [place], [place]/02/2018. . TECHNIQUE: Multiple contiguous axial images were obtained through the abdomen and pelvis following b olus infusion of 100 ml Omnipaque 350 (iohexol) nonionic water-soluble contrast as a single exam do se. Partial prescribed oral contrast ingested. Using automated exposure control and adjustment of th e mA and/or kV according to patient size, radiation dose was kept as low as reasonably achievable to obtain optimal diagnostic quality images. DICOM format image data is available electronically for re view and comparison. FINDINGS: Abdomen CT: The spleen, pancreas, kidneys, adrenals are unremarkable. 1 6 fatty liver There is no evidence for an y appreciable pathological adenopathy, free fluid, or bowel obstruction. Pelvic CT: There is no evidence for mass, abscess formation, or any significant adenopathy within the pelvis. CONCLUSION: Fatty liver. Electronically signed by: Errol Khoury MD 01/03/2018 5:38 PM EDT
[2018-01-03] MEDS: HYDROmorphone PF Inj 2 MG/ML Vial IV.PUSH PRN ×2 (18:14→22:38)
[2018-01-04] MEDS: Sod Chloride 0.9% Inj 1,000 ML IV.CONT SCH ×3 (03:40→13:00)
[2018-01-04] MEDS: MethylPREDNISolone Sod Succinate Inj 40 MG/ML Vial IV.PUSH SCH ×2 (05:36→14:39)
[2018-01-04 08:28] LABS: Hematocrit 41.1 % (39.0-51.0); Hemoglobin 14.1 gm/dL (13.0-17.0); Mean Corpuscular HGB Conc 34.3 % (32.0-36.0); Mean Corpuscular Hemoglobin 37.7 pg (27.0-34.0); Mean Corpuscular Volume 109.9 fL (80.0-100.0); Mean Platelet Volume 10.7 fL (7.0-11.0); Platelet Count 135 th/mm3 (150-450); Red Blood Count 3.74 mil/mm3 (4.50-5.90); Red Cell Distribution Width 18.9 % (11.6-17.2); White Blood Count 10.6 th/mm3 (4.0-11.0)
[2018-01-04 08:35] LABS: Albumin 2.7 g/dL (3.4-5.0); Anion Gap 7 meq/L (5-15); Aspartate Aminotransferase 66 U/L (15-37); Blood Urea Nitrogen 6 mg/dL (7-18); Calcium 7.6 mg/dL (8.5-10.1); Carbon Dioxide 25.7 meq/L (21.0-32.0); Chloride 108 meq/L (98-107); Glomerular Filtration Rate Greater Than 89 mL/min (>89); Glucose,Random 147 mg/dL (74-106); Potassium 3.7 meq/L (3.5-5.1); Sodium 141 meq/L (136-145)
[2018-01-04 08:36] LABS: Alanine Aminotransferase 58 U/L (12-78)
[2018-01-04 08:38] LABS: Alkaline Phosphatase 68 U/L (45-117); Total Protein 5.6 g/dL (6.4-8.2)
--- NOTE | 2018-01-04 15:57 | US ---
EXAM DATE: 01/04/2018 3:48 PM EDT AGE/SEX: 37 years / Male INDICATIONS: Nausea/vomiting. CLINICAL DATA: This is the patient's initial encounter. Patient reports that signs and symptoms have been present for 1 week and indicates a pain score of 3/10. MEDICAL/SURGICAL HISTORY: . Crohn disease. None. COMPARISON: [facility] [place] PELVIS W [place]AST, 01/03/2018. . MEASUREMENTS: Liver:__ 17.2 cm. Common Bile Duct:__ 6mm. FINDINGS: Liver: Increased echotexture without focal lesion or ductal dilatation. Portal Vein: Hepatopedal flow seen in portal vein. Common Duct: No intraluminal mass or stone visualized. Gallbladder: Demonstrates no wall thickening or pericholecystic fluid. No stones visualized. Pancreas: The visualized portions are within normal limits Right Kidney: Normal echotexture and cortical thickness. No mass or hydronephrosis. Other: None. CONCLUSION: 1. No acute abnormality is identified to explain the clinical symptoms. 2. Hepatic steatosis. Electronically signed by: Felix Duarte MD 01/04/2018 3:55 PM EDT
[2018-01-04 17:50] LABS: Amphetamine Screen,Urine Neg (Neg); Barbiturate Screen,Urine Neg (Neg); Cannabinoid Screen,Urine Pos (Neg); Cocaine Screen,Urine Neg (Neg)
[2018-01-04 17:57] LABS: Opiate Screen,Urine Neg (Neg)
--- NOTE | 2018-01-04 20:08 | P.PNGI ---
Subjective Interval history: Laying comfortably in bed complains of upper abdominal discomfort but it does seem to be improving overall Physical Exam Vital signs: Vital Signs 01/04/18 00:00 01/04/18 04:00 01/04/18 08:00 Temperature 98 F 97.6 F 97.6 F Pulse Rate 64 76 68 Respiratory Rate 18 18 16 Blood Pressure 118/63 106/70 130/77 Pulse Oximetry 95 99 99 01/04/18 12:00 01/04/18 16:00 Temperature 98.4 F 98.4 F Pulse Rate 85 90 Respiratory Rate 16 16 Blood Pressure 142/86 H 167/79 H Pulse Oximetry 97 100 Intake & Output 01/04/18 01/04/18 01/05/18 06:59 18:59 06:59 Intake Total 1000 / 1000 900 / 900 Output Total 1000 / 1000 Balance 1000 / 1000 -100 / -100 Weight 68.9 kg Intake: IV 1000 / 1000 900 / 900 NS Inj 1,000 ML @ 125 mls/hr IV 1000 / 1000 900 / 900 .CONT .Q8H HALI Rx#:[id number] Output: Urine 1000 / 1000 Other: # Voids 1 # Bowel Movements 1 - Constitutional no acute distress - Routine HEENT Exam Head: Present: normocephalic Eye: Present: EOMI - Routine Neck Exam Present: supple - Routine Respiratory Exam Present: CTA bilaterally - Routine Cardiovascular Exam Present: RRR - Routine Abdominal Exam Present: soft, normoactive bowel sounds, tenderness (Mild upper abdominal tenderness). Absent: rebound, guarding Results - Labs CBC & Chem 7: 01/04/18 08:01 01/04/18 08:01 Laboratory Results - last 24 hr 01/04/18 01/04/18 01/04/18 08:01 08:01 17:05 WBC 10.6 RBC 3.74 L Hgb 14.1 Hct 41.1 MCV 109.9 H MCH 37.7 H MCHC 34.3 RDW 18.9 H Plt Count 135 L MPV 10.7 Sodium 141 Potassium 3.7 Chloride 108 H Carbon Dioxide 25.7 Anion Gap 7 BUN 6 L Creatinine 0.55 L Estimated GFR Greater than 89 Random Glucose 147 H Calcium 7.6 L Total Bilirubin 0.6 AST 66 H ALT 58 Alkaline Phosphatase 68 Total Protein 5.6 L Albumin 2.7 L Urine Opiates Screen Neg Ur Barbiturates Screen Neg Ur Amphetamines Screen Neg U Benzodiazepines Scrn Neg Urine Cocaine Screen Neg U Cannabinoids Screen Pos H - Imaging Impressions Gallbladder Ultrasound 01/04/18 00:00 CONCLUSION: 1. No acute abnormality is identified to explain the clinical symptoms. 2. Hepatic steatosis. Assessment and Plan - Plan Patient with known history of Crohn's disease who presents with supposedly a flare with complaints of abdominal pain nausea vomiting and diarrhea He underwent an EGD and a colonoscopy and was found to have esophagitis hiatal hernia gastritis and duodenitis otherwise unremarkable Biopsies were taken from his colon which appeared to be normal in addition to the terminal ileum which was normal CT of the abdomen is unremarkable for any changes and the HIDA scan was unremarkable At this point we can safely say there is no obvious or acute Crohn's flare I had a lengthy discussion with the patient and his mother in the room we will need to review his old records so as to confirm the diagnosis of Crohn's Patient follow-up with GI post discharge Patient may be discharged from a GI standpoint on PPI Not much to add at this point from a GI perspective we will sign off
--- NOTE | 2018-01-06 09:02 | P.DS ---
Date of admission: 01/02/18 12:35 Primary care physician: No Primary Care Physician Brief History from admission: Mr. Rodriguez is a 37-year-old male. He came into the hospital secondary to hematemesis with abdominal pain. This patient has a past history of Crohn's disease and esophageal varices in the past. She also has a history of episodic vomiting episodes in the past. He says this can last 1-2 days. His vomiting started yesterday. She says vomiting started first and subsequently bleeding started. He will typically have esophageal bleeding which collects in the stomach and he reports vomiting bright red blood and sometimes dark black blood clots. Hemoglobin is stable at the time and is analyzed in the ER. However, patient at risk for further bleeding and anemia. No other complaints at this time. To him this feels like 1 of his Crohn's exacerbations and does not feel like food poisoning or virus. No sick contacts. DS: Summary Hospital Course: underwent EGD, esophagitis noted. Colonoscopy unremarkable. Was starting to tolerate some po intake. Was frequently asking for Ativan, mother said that he had been receiving Ativan as an outpatient but E [employer] database did not show he had any controlled substances filled for at least a year. Patient was recommended to stay overnight to monitor further p.o. intake due to recurrent nausea vomiting. Ultrasound of gallbladder was negative. Gastric emptying study had been ordered but the patient refused to stay and left AGAINST MEDICAL ADVICE. - Time Spent with Patient Total time spent providing and/or coordinating discharge services: Less than 30 minutes - Quality: VTE Deep Vein Thrombosis/Pulmonary Embolism Present on Admission: No Exam Narrative: Mild abdominal tenderness palpation, otherwise soft, nondistended, no acute distress Results Procedures completed during hospitalization: EGD, colonoscopy Pending studies at discharge: Pending at discharge 01/03/18 15:15 Surgical [PTH] Routine - Impressions ITS Impressions Abdomen X-Ray 01/02/18 09:56 CONCLUSION: No acute abnormality is identified. There is no free air. Chest X-Ray 01/02/18 09:56 CONCLUSION: 1. No focal or acute intrathoracic disease. 2. No evidence of free air. Abdomen/Pelvis CT 01/03/18 00:00 CONCLUSION: Fatty liver. Gallbladder Ultrasound 01/04/18 00:00 CONCLUSION: 1. No acute abnormality is identified to explain the clinical symptoms. 2. Hepatic steatosis. Discharge Plan - Discharge Disposition Patient Disposition: Left Against Medical Advice - Discharge Order Discharge Orders: AMA Discharge (Routine); Ordered 01/04/18 Ordered By: Emigdio Blair - Physicians Team Primary Care Provider: Primary Care Joleen Galeana Attending Provider: Emigdio Blair Other Providers: Bryon Calle MD
== END 2018-01-04 19:38 | disposition left against medical advice (07) ==
LOC: NEPE 09:45 → NEDA 12:35 → N04 17:31
PROVIDERS: ADMIT Hospitalist; ATTEND Hospitalist
PROC: COLONOS (2018-01-03 08:40)
PROC: PANENDO (2018-01-03 08:40)